=== PATIENT | female | born 1960 | race Hispanic/Latino ===

== ENCOUNTER 2018-04-06 09:33 | Emergency (ER) | payer SELFPAY ==
--- NOTE | 2018-04-06 10:48 | RAD REPORT ---
EXAM DESCRIPTION: RAD -Hand Left 3 View - 04/06/2018 10:12 am CLINICAL HISTORY: Left hand pain status post injury FINDINGS: No fracture or dislocation is seen.
[2018-04-06] MEDS ORDERED: KETOROLAC 30 MG/ML INJ ONE (11:04)
--- NOTE | 2018-04-06 11:43 | EDPHYS ---
Physician Documentation [facility] Name: Karla Sheikh Age: 57 yrs Sex: Female : 1960 Arrival Date: 04/06/2018 Time: 09:36 Bed 19 Private MD: out of town, doctor ED Physician Max Akins HPI: 04/06 09:57 The patient or guardian reports injury, pain. The complaints affect the left thumbnail jmm and palmar aspect of distal phalanx of left thumb and dorsal aspect of distal phalanx of left thumb. Context: resulted from hand saw. Onset: The symptoms/episode began/occurred acutely, last night. Modifying factors: The symptoms are alleviated by nothing, the symptoms are aggravated by nothing. Associated signs and symptoms: Pertinent positives: Pertinent negatives: fever. This is a 57 year old female with no chronic medical conditions that presents to the ED with left thumb pain after accidently cutting herself using a hand saw. The patient complains of throbbing pain. Patient is UTD on tetanus immunization. Denies other injury. . Historical: - Allergies: 09:51 No Known Allergies; ch - Home Meds: 09:51 None [Active]; ch - PMHx: 09:51 None; ch - PSHx: 09:51 None; ch - Immunization history:: Adult Immunizations up to date. - Social history:: Smoking status: Patient/guardian denies using tobacco. - Ebola Screening: : Patient negative for fever greater than or equal to 101.5 degrees Fahrenheit, and additional compatible Ebola Virus Disease symptoms Patient denies exposure to infectious person Patient denies travel to an Ebola-affected area in the 21 days before illness onset No symptoms or risks identified at this time. ROS: 09:57 Constitutional: Negative for fever. jmm 09:57 MS/extremity: Positive for laceration, pain. 09:57 Skin: Positive for laceration(s). 09:57 Neuro: Negative for weakness. 09:57 All other systems are negative. Exam: 09:57 Head/Face: atraumatic. jmm 09:57 Constitutional: The patient appears in no acute distress, alert, awake. 09:57 Cardiovascular: Rate: normal. 09:57 Respiratory: the patient does not display signs of respiratory distress, Respirations: normal. 09:57 Musculoskeletal/extremity: ROM: intact in all extremities, a 0.5 cm laceration noted noted to the radial side of the left distal thumb. An injury to the nail plate is also noted. No active bleeding. Mild erythema is appreciated. FROM, NVI. 09:57 Skin: 0.5 cm laceration noted ot the left thumb with mild erythema. 09:57 Neuro: Orientation: is normal, Mentation: is normal, Memory: is normal, Motor: is normal. 09:57 Psych: Behavior/mood is pleasant, cooperative. Vital Signs: 09:51 BP 151 / 79; Pulse 64; Resp 18; Temp 97.8; Pulse Ox 99% on R/A; Weight 68.04 kg; Height ch 5 ft. 2 in. (157.48 cm); Pain 8/10; 10:47 BP 142 / 68; Pulse 60; Resp 15; Temp 97.9; Pulse Ox 99% on R/A; Pain 7/10; ch 12:01 BP 156 / 85; Pulse 62; Resp 18; Temp 98; Pulse Ox 99% on R/A; Pain 3/10; ch 09:51 Body Mass Index 27.44 (68.04 kg, 157.48 cm) ch MDM: 09:[address] [facility] 10:07 Data reviewed: vital signs, nurses notes. [facility] 11:42 Counseling: I had a detailed discussion with the patient and/or guardian regarding: the [facility] historical points, exam findings, and any diagnostic results supporting the discharge/admit diagnosis, radiology results, the need for outpatient follow up, to return to the emergency department if symptoms worsen or persist or if there are any questions or concerns that arise at home. 04/06 09:56 Order name: Hand Left 3 View XRAY; Complete Time: 10:51 [facility] 04/06 11:19 Order name: Wound Care; Complete Time: 12:04 [facility] Administered Medications: 11:05 Drug: Ketorolac 30 mg Route: IM; Site: right gluteus; 12:04 Follow up: Response: No adverse reaction; Marked relief of symptoms Disposition: 15:01 Co-signature as Attending Physician, Max Akins MD I agree with the assessment and iain plan of care. Disposition: 04/06/18 11:42 Discharged to Home. Impression: Left Thumb Laceration. - Condition is Stable. - Discharge Instructions: Non-Sutured Laceration. - Prescriptions for Augmentin 875- 125 mg Oral Tablet - take 1 tablet by ORAL route every 12 hours for 10 days; 20 tablet. Ultram 50 mg Oral Tablet - take 1 tablet by ORAL route every 6 hours As needed; 12 tablet. - Work release form, Medication Reconciliation Form, Thank You Letter, Antibiotic Education, Prescription Opioid Use form. - Follow up: Private Physician; When: 2 - 3 days; Reason: Continuance of care. Signatures: Dispatcher [employer] EDPeri Arias RN RN ch Anderson, Corey, MD MD cha Mickail, Joel, PA PA jmm Corrections: (The following items were deleted from the chart) 12:04 11:42 04/06/2018 11:42 Discharged to Home. Impression: Left Thumb Laceration. Condition ch is Stable. Forms are Medication Reconciliation Form, Thank You Letter, Antibiotic Education, Prescription Opioid Use. Follow up: Private Physician; When: 2 - 3 days; Reason: Continuance of care. shelia
--- NOTE | 2018-04-06 11:43 | ER ---
Nurse's Notes [facility] Name: Karla Sheikh Age: 57 yrs Sex: Female : 1960 Arrival Date: 04/06/2018 Time: 09:36 Bed 19 Private MD: out of town, doctor Diagnosis: Left Thumb Laceration Presentation: 04/06 09:50 Presenting complaint: Patient states: cut L thumb and nail yesterday at 1000 with a saw. c/o sharp increase in pain today after working. last tetnus shot was 1 yr [employer]. Transition of care: patient was not received from another setting of care. Onset of symptoms was April 05, 2018 at 22:00. Risk Assessment: Do you want to hurt yourself or someone else? Patient reports no desire to harm self or others. Initial Sepsis Screen: Does the patient meet any 2 criteria? No. Patient's initial sepsis screen is negative. Does the patient have a suspected source of infection? No. Patient's initial sepsis screen is negative. Care prior to arrival: None. 09:50 Method Of Arrival: Ambulatory 09:50 Acuity: IRMA 4 Triage Assessment: 09:51 General: Appears in no apparent distress. comfortable, Behavior is calm, cooperative, ch appropriate for age. Pain: Complains of pain in dorsal aspect of distal phalanx of left thumb, palmar aspect of distal phalanx of left thumb and left thumbnail Pain currently is 9 out of 10 on a pain scale. Pain began suddenly. Neuro: No deficits noted. Respiratory: Airway is patent Respiratory effort is even, unlabored, Breath sounds are clear bilaterally. Musculoskeletal: Circulation, motion, and sensation intact. Capillary refill < 3 seconds, in bilateral fingers. toes. Range of motion: intact in all extremities. Injury Description: Laceration sustained to palmar aspect of distal phalanx of left thumb and left thumbnail is clean, 0.5 to 2.5 cm long, not bleeding, was sustained 6-12 hours ago. no active bleeding noted at this time. Historical: - Allergies: 09:51 No Known Allergies; ch - Home Meds: 09:51 None [Active]; ch - PMHx: 09:51 None; ch - PSHx: 09:51 None; ch - Immunization history:: Adult Immunizations up to date. - Social history:: Smoking status: Patient/guardian denies using tobacco. - Ebola Screening: : Patient negative for fever greater than or equal to 101.5 degrees Fahrenheit, and additional compatible Ebola Virus Disease symptoms Patient denies exposure to infectious person Patient denies travel to an Ebola-affected area in the 21 days before illness onset No symptoms or risks identified at this time. Screenin:53 Abuse screen: Denies threats or abuse. Denies injuries from another. Nutritional ch screening: No deficits noted. Tuberculosis screening: No symptoms or risk factors identified. Fall Risk None identified. Assessment: 09:53 Reassessment: Patient appears in no apparent distress at this time. Patient and/or ch family updated on plan of care and expected duration. Pain level reassessed. Patient is alert, oriented x 3, equal unlabored respirations, skin warm/dry/pink. Patient states feeling better. Patient states symptoms have improved. 10:47 Reassessment: Patient appears in no apparent distress at this time. Patient and/or ch family updated on plan of care and expected duration. Pain level reassessed. Patient is alert, oriented x 3, equal unlabored respirations, skin warm/dry/pink. 12:01 Reassessment: Patient appears in no apparent distress at this time. Patient and/or ch family updated on plan of care and expected duration. Pain level reassessed. Patient is alert, oriented x 3, equal unlabored respirations, skin warm/dry/pink. Patient states feeling better. Patient states symptoms have improved. Vital Signs: 09:51 BP 151 / 79; Pulse 64; Resp 18; Temp 97.8; Pulse Ox 99% on R/A; Weight 68.04 kg; Height 5 ft. 2 in. (157.48 cm); Pain 8/10; 10:47 BP 142 / 68; Pulse 60; Resp 15; Temp 97.9; Pulse Ox 99% on R/A; Pain 7/10; ch 12:01 BP 156 / 85; Pulse 62; Resp 18; Temp 98; Pulse Ox 99% on R/A; Pain 3/10; ch 09:51 Body Mass Index 27.44 (68.04 kg, 157.48 cm) ED Course: 09:36 Patient arrived in ED. mr 09:36 out of town, doctor is Private Physician. mr 09:46 Cristiano Meza PA is PHCP. [facility] 09:46 Max Akins MD is Attending Physician. [facility] 09:50 Peri Vo, KWAME is Primary Nurse. 09:51 Triage completed. 09:51 Arm band placed on left wrist. Patient placed in an exam room, on a stretcher. ch 09:53 No apparent distress. Resting quietly. ch 09:53 Patient has correct armband on for positive identification. Placed in gown. Bed in low ch position. Call light in reach. Side rails up X 1. 09:53 Patient did not have IV access during this emergency room visit. 10:07 X-ray completed. Portable x-ray completed in exam room. Patient tolerated procedure ml well. 10:08 Hand Left 3 View XRAY In Process Unspecified. EDMS 12:01 No apparent distress. Resting quietly. 12:01 Warm blanket given. 12:01 No provider procedures requiring assistance completed. 12:01 Wound care: to laceration located on left thumbnail was cleaned with Hibiclens, dressed with Neosporin, 4X4s, Kerlix, Patient tolerated well. Administered Medications: 11:05 Drug: Ketorolac 30 mg Route: IM; Site: right gluteus; 12:04 Follow up: Response: No adverse reaction; Marked relief of symptoms Outcome: 11:42 Discharge ordered by . [facility] 12:01 Discharged to home ambulatory, with family. 12:01 Condition: improved 12:01 Discharge instructions given to patient, Instructed on discharge instructions, follow up and referral plans. no drinking with medication, no driving heavy equipment, medication usage, Demonstrated understanding of instructions, follow-up care, medications, Prescriptions given X 2. 12:04 Patient left the ED. Signatures: Dispatcher [employer] EDMS Peri Vo, KWAME RN Cristiano Kincaid PA PA jmm Rivera, Maria mr Lopez, Melissa ml
== END 2018-04-06 12:04 | disposition home or self-care (01) ==
LOC: ER 09:33
DX: S61.012A Laceration without foreign body of left thumb without damage to nail, initial encounter (principal); W27.0XXA Contact with workbench tool, initial encounter; Y93.89 Activity, other specified; Y92.9 Unspecified place or not applicable; Y99.8 Other external cause status
CPT/HCPCS: 96372; 99284

== ENCOUNTER 2018-07-06 03:15 | Emergency (ER) | payer SELFPAY ==
[2018-07-06] MEDS ORDERED: HYDROCODONE/APAP 7.5/325 MG TAB ONE (04:01)
--- NOTE | 2018-07-06 06:48 | EDPHYS ---
Physician Documentation [facility] Name: Karla Sheikh Age: 58 yrs Sex: Female : 1960 Arrival Date: 07/06/2018 Time: 03:19 Bed 18 Private MD: ED Physician Julio C Tinoco HPI: 07/06 04:00 This 58 yrs old Female presents to ER via Ambulatory with complaints of pkl Shoulder Pain. 04:00 Details of fall: The patient fell from an upright position, Walking up the stairs. pkl Onset: The symptoms/episode began/occurred today, 10 hour(s) ago. Associated injuries: The patient sustained right shoulder, painful injury, right forearm, painful injury. Historical: - Allergies: 03:32 No Known Allergies; fc - Home Meds: 03:32 None [Active]; fc - PMHx: 03:32 None; fc - PSHx: 03:32 Cholecystectomy; fc - Immunization history:: Last tetanus immunization: up to date Flu vaccine is up to date. - Social history:: Smoking status: Patient/guardian denies using tobacco. - Ebola Screening: : Patient negative for fever greater than or equal to 101.5 degrees Fahrenheit, and additional compatible Ebola Virus Disease symptoms Patient denies exposure to infectious person Patient denies travel to an Ebola-affected area in the 21 days before illness onset. ROS: 04:00 Eyes: Negative for injury, pain, redness, and discharge, ENT: Negative for injury, pkl pain, and discharge, Neck: Negative for injury, pain, and swelling, Cardiovascular: Negative for chest pain, palpitations, and edema, Respiratory: Negative for shortness of breath, cough, wheezing, and pleuritic chest pain, Abdomen/GI: Negative for abdominal pain, nausea, vomiting, diarrhea, and constipation, Back: Negative for injury and pain, : Negative for injury, bleeding, discharge, and swelling, Skin: Negative for injury, rash, and discoloration. 04:00 MS/extremity: Positive for pain, tenderness, of the right shoulder and right forearm. 04:00 Neuro: Negative for altered mental status, loss of consciousness. Exam: 04:03 Head/Face: Normocephalic, atraumatic. Eyes: Pupils equal round and reactive to light, pkl extra-ocular motions intact. Lids and lashes normal. Conjunctiva and sclera are non-icteric and not injected. Cornea within normal limits. Periorbital areas with no swelling, redness, or edema. ENT: Nares patent. No nasal discharge, no septal abnormalities noted. Tympanic membranes are normal and external auditory canals are clear. Oropharynx with no redness, swelling, or masses, exudates, or evidence of obstruction, uvula midline. Mucous membranes moist. Neck: Trachea midline, no thyromegaly or masses palpated, and no cervical lymphadenopathy. Supple, full range of motion without nuchal rigidity, or vertebral point tenderness. No Meningismus. Chest/axilla: Normal chest wall appearance and motion. Nontender with no deformity. No lesions are appreciated. Cardiovascular: Regular rate and rhythm with a normal S1 and S2. No gallops, murmurs, or rubs. Normal PMI, no JVD. No pulse deficits. Respiratory: Lungs have equal breath sounds bilaterally, clear to auscultation and percussion. No rales, rhonchi or wheezes noted. No increased work of breathing, no retractions or nasal flaring. Abdomen/GI: Soft, non-tender, with normal bowel sounds. No distension or tympany. No guarding or rebound. No evidence of tenderness throughout. Back: No spinal tenderness. No costovertebral tenderness. Full range of motion. Skin: Warm, dry with normal turgor. Normal color with no rashes, no lesions, and no evidence of cellulitis. Neuro: Awake and alert, GCS 15, oriented to person, place, time, and situation. Cranial nerves II-XII grossly intact. Motor strength 5/5 in all extremities. Sensory grossly intact. Cerebellar exam normal. Normal gait. 04:03 Musculoskeletal/extremity: Extremities: grossly normal except: noted in the right shoulder: noted in the right forearm: pain and tenderness. Vital Signs: 03:28 BP 169 / 77; Pulse 64; Resp 18; Temp 97.0(O); Pulse Ox 99% on R/A; Weight 70.76 kg (R); fc Height 5 ft. 2 in. (157.48 cm) (R); Pain 8/10; 05:44 BP 119 / 66; Pulse 62; Resp 16; Pulse Ox 96% on R/A; aa1 06:29 BP 107 / 74; Pulse 60; Resp 16; Pulse Ox 98% on R/A; Pain 5/10; aa1 03:28 Body Mass Index 28.53 (70.76 kg, 157.48 cm) fc MDM: 03:28 Patient medically screened. pkl 06:46 Data reviewed: vital signs, radiologic studies, CT scan, plain films. pkl 07/06 03:46 Order name: Humerus Right XRAY pkl 07/06 03:46 Order name: Forearm Right XRAY pkl 07/06 04:39 Order name: Shoulder Right Wo Cont EDMS 07/06 04:40 Order name: Wrist Right Wo Cont EDMS 07/06 06:46 Order name: Sling; Complete Time: 07:03 pkl Administered Medications: 03:57 Drug: [place] (7.5 mg-325 mg) 1 tabs Route: PO; aa1 05:46 Follow up: Response: No adverse reaction; Pain is decreased aa1 Disposition: 07/06/18 06:47 Discharged to Home. Impression: Rotator cuff injury right shoulder. Sprain right wrist S/P Fall. - Condition is Stable. - Prescriptions for Ultram 50 mg Oral Tablet - take 1 tablet by ORAL route every 8 hours As needed; 30 tablet. - Medication Reconciliation Form, Thank You Letter, Antibiotic Education, Prescription Opioid Use, Work release form form. - Follow up: Jameel Mcneal MD; When: 2 - 3 days; Reason: Re-evaluation by your physician. - Problem is new. - Symptoms have improved. Signatures: Dispatcher [employer] EDMS Rosmery Marr RN RN aa1 Julio C Tinoco MD MD pk Siri Oneal RN RN Corrections: (The following items were deleted from the chart) 04:06 04:03 Musculoskeletal/extremity: Extremities: grossly normal except: noted in the right pkl shoulder: noted in the right forearm: pkl 07:05 06:47 07/06/2018 06:47 Discharged to Home. Impression: Rotator cuff injury right aa1 shoulder. Sprain right wrist S/P Fall. Condition is Stable. Forms are Medication Reconciliation Form, Thank You Letter, Antibiotic Education, Prescription Opioid Use. Follow up: Dr. Jameel Mcneal; When: 2 - 3 days; Reason: Re-evaluation by your physician. Problem is new. Symptoms have improved. pkl
--- NOTE | 2018-07-06 06:48 | ER ---
Nurse's Notes [facility] Name: Karla Sheikh Age: 58 yrs Sex: Female : 1960 Arrival Date: 07/06/2018 Time: 03:19 Bed 18 Private MD: Diagnosis: Rotator cuff injury right shoulder. Sprain right wrist S/P Fall Presentation: 07/06 03:28 Presenting complaint: Patient states: that she was walking up to stairs and missed a step. Hit right arm and shoulder on the steps. Unable to move at the wrist or shoulder per pt. denies hitting head. Transition of care: patient was not received from another setting of care. Onset of symptoms was July 05, 2018 at 18:00. Risk Assessment: Do you want to hurt yourself or someone else? Patient reports no desire to harm self or others. Initial Sepsis Screen: Does the patient meet any 2 criteria? No. Patient's initial sepsis screen is negative. Does the patient have a suspected source of infection? No. Patient's initial sepsis screen is negative. Care prior to arrival: Medication(s) given: Motrin, at 1830. 03:28 Method Of Arrival: Ambulatory 03:28 Acuity: IRMA 4 fc Historical: - Allergies: 03:32 No Known Allergies; fc - Home Meds: 03:32 None [Active]; fc - PMHx: 03:32 None; fc - PSHx: 03:32 Cholecystectomy; fc - Immunization history:: Last tetanus immunization: up to date Flu vaccine is up to date. - Social history:: Smoking status: Patient/guardian denies using tobacco. - Ebola Screening: : Patient negative for fever greater than or equal to 101.5 degrees Fahrenheit, and additional compatible Ebola Virus Disease symptoms Patient denies exposure to infectious person Patient denies travel to an Ebola-affected area in the 21 days before illness onset. Screenin:31 Abuse screen: Denies threats or abuse. Nutritional screening: No deficits noted. fc Tuberculosis screening: No symptoms or risk factors identified. 03:50 Fall Risk None identified. aa1 Assessment: 03:50 General: Appears in no apparent distress. uncomfortable, Behavior is calm, cooperative, aa1 appropriate for age. Pain: Complains of pain in right arm. Neuro: Level of Consciousness is awake, alert, obeys commands, Oriented to person, place, time, situation. Respiratory: Airway is patent Respiratory effort is even, unlabored, Respiratory pattern is regular, symmetrical. GI: No signs and/or symptoms were reported involving the gastrointestinal system. : No signs and/or symptoms were reported regarding the genitourinary system. EENT: No signs and/or symptoms were reported regarding the EENT system. Derm: Skin is intact, is healthy with good turgor, Skin is pink, warm \T\ dry. Musculoskeletal: Circulation, motion, and sensation intact. Capillary refill < 3 seconds, Range of motion: limited in right elbow and right wrist. 05:45 Reassessment: Patient appears in no apparent distress at this time. Patient and/or aa1 family updated on plan of care and expected duration. Pain level reassessed. Patient is alert, oriented x 3, equal unlabored respirations, skin warm/dry/pink. Awaiting x-ray results. 06:29 Reassessment: Patient appears in no apparent distress at this time. Patient and/or aa1 family updated on plan of care and expected duration. Pain level reassessed. Patient is alert, oriented x 3, equal unlabored respirations, skin warm/dry/pink. Awaiting CT results. 07:04 Reassessment: Patient appears in no apparent distress at this time. Patient is alert, aa1 oriented x 3, equal unlabored respirations, skin warm/dry/pink. Discussed d/c \T\ f/u instructions with pt \T\ daughter; denies questions or concerns at this time. Vital Signs: 03:28 BP 169 / 77; Pulse 64; Resp 18; Temp 97.0(O); Pulse Ox 99% on R/A; Weight 70.76 kg (R); fc Height 5 ft. 2 in. (157.48 cm) (R); Pain 8/10; 05:44 BP 119 / 66; Pulse 62; Resp 16; Pulse Ox 96% on R/A; aa1 06:29 BP 107 / 74; Pulse 60; Resp 16; Pulse Ox 98% on R/A; Pain 5/10; aa1 03:28 Body Mass Index 28.53 (70.76 kg, 157.48 cm) ED Course: 03:19 Patient arrived in ED. ag3 03:27 Julio C Tinoco MD is Attending Physician. pkl 03:28 Arm band placed on Patient placed in an exam room, on a stretcher. 03:31 Triage completed. 03:31 Patient has correct armband on for positive identification. Bed in low position. Call light in reach. 03:54 Rosmery Marr, RN is Primary Nurse. aa1 04:20 X-ray completed. Portable x-ray completed in exam room. Patient tolerated procedure kw well. 04:21 Humerus Right XRAY In Process Unspecified. EDMS 04:21 Forearm Right XRAY In Process Unspecified. EDMS 05:34 Shoulder Right Wo Cont In Process Unspecified. EDMS 05:38 Wrist Right Wo Cont In Process Unspecified. EDMS 06:46 Jameel Mcneal MD is Referral Physician. pkl 07:03 No provider procedures requiring assistance completed. Patient did not have IV access aa1 during this emergency room visit. Sling applied to right arm. Administered Medications: 03:57 Drug: [place] (7.5 mg-325 mg) 1 tabs Route: PO; aa1 05:46 Follow up: Response: No adverse reaction; Pain is decreased aa1 Outcome: 06:47 Discharge ordered by . pkl 07:04 Discharged to home ambulatory, with family. aa1 07:04 Condition: good 07:04 Discharge instructions given to patient, family, Instructed on discharge instructions, follow up and referral plans. medication usage, Demonstrated understanding of instructions, follow-up care, medications, Prescriptions given X 1. 07:05 Patient left the ED. aa1 Signatures: Dispatcher [employer] Rosmery Taylor, KWAME RN aa1 Julio C Tinoco MD MD pkSiri Butterfield RN RN fc Whitley, Kimberlee kw Gomez, Alice ag3
--- NOTE | 2018-07-06 09:04 | RAD REPORT ---
EXAM DESCRIPTION: CT - Shoulder Right Wo Cont - 07/06/2018 5:34 am CLINICAL HISTORY: Right shoulder pain status post fall COMPARISON: 07/06/2018 x-ray TECHNIQUE: Computed axial tomography of the right shoulder was obtained with coronal and sagittal re construction A preliminary report was generated by [email or web address] and reviewed prior to this dictation All CT scans are performed using dose optimization technique as appropriate and may include automated exposure control or mA/KV adjustment according to patient size. FINDINGS: No fracture or dislocation is seen. A significant joint effusion is not noted. The muscles are normal size and density. IMPRESSION: No fracture is seen
--- NOTE | 2018-07-06 09:07 | RAD REPORT ---
EXAM DESCRIPTION: CT - Wrist Right Wo Cont - 07/06/2018 5:38 am CLINICAL HISTORY: Right wrist pain status post fall COMPARISON: 07/06/2018 x-ray TECHNIQUE: Computed axial tomography of the right wrist was obtained with coronal and sagittal recon struction. A preliminary report was generated by [employer] and reviewed prior to this dictat ion All CT scans are performed using dose optimization technique as appropriate and may include automated exposure control or mA/KV adjustment according to patient size. FINDINGS: No fracture or dislocation is seen. A significant joint effusion is not noted. Negative ulnar variance is seen. IMPRESSION: No fracture is visualized. If the patient continues to have symptoms to suggest an occul t fracture, follow-up plain film series in 7 days would be
--- NOTE | 2018-07-06 09:07 | RAD REPORT ---
EXAM DESCRIPTION: RAD - Humerus Right - 07/06/2018 4:25 am CLINICAL HISTORY: Right arm pain status post fall FINDINGS: No fracture is seen
--- NOTE | 2018-07-06 09:08 | RAD REPORT ---
EXAM DESCRIPTION: RAD - Forearm Right - 07/06/2018 4:25 am CLINICAL HISTORY: Right arm pain status post fall FINDINGS: No fracture is seen.
== END 2018-07-06 07:05 | disposition home or self-care (01) ==
LOC: ER 03:15
DX: S46.001A Unspecified injury of muscle(s) and tendon(s) of the rotator cuff of right shoulder, initial encounter (principal); S63.501A Unspecified sprain of right wrist, initial encounter; W10.9XXA Fall (on) (from) unspecified stairs and steps, initial encounter; Y93.89 Activity, other specified; Y92.9 Unspecified place or not applicable
CPT/HCPCS: 73200; 99284

== ENCOUNTER 2019-10-23 23:23 | Observation (INO) | payer SELFPAY ==
[2019-10-24] MEDS ORDERED: ONDANSETRON 4 MG/2 ML VIAL ONE (00:31)
[2019-10-24] MEDS ORDERED: MORPHINE 4 MG/ML SYR ONE (00:31)
[2019-10-24] MEDS ORDERED: NA CHLORIDE 0.9% 1,000 ML ONE (00:31)
[2019-10-24 00:39] LABS: Absolute Lymphocytes (CBC) 2.8 K/uL (0.7-4.9); Basophils % 0.8 % (0-1.3); Hematocrit 37.5 % (36.0-45.0); Lymphocytes % 40.9 % (15.3-44.8); MPV 8.9 fL (7.6-11.3); RBC Red Blood Cell Count 4.19 M/uL (3.86-4.86)
[2019-10-24 00:40] LABS: Protime INR 0.99
[2019-10-24 00:51] LABS: ALT/SGPT 64 U/L (12-78); AST/SGOT 53 U/L (15-37); Albumin 3.8 g/dL (3.4-5.0); Alkaline Phosphatase 84 U/L (45-117); BUN Blood Urea Nitrogen 22 mg/dL (7-18); Bicarbonate 25 mmol/L (21-32); Bilirubin Direct 0.1 mg/dL (0-0.2); Bilirubin Total 0.4 mg/dL (0.2-1.0); Glucose Level 104 mg/dL (74-106); Lipase 236 U/L (73-393); Magnesium 2.1 mg/dL (1.8-2.4); NT PRO-BNP 19 pg/mL (<125); Potassium 3.7 mmol/L (3.5-5.1); Sodium Level 139 mmol/L (136-145); Troponin (Emerg Dept Use Only) < 0.02 ng/mL (0.0-0.045)
--- NOTE | 2019-10-24 01:12 | ER ---
Nurse's Notes [facility] Name: Karla Sheikh Age: 59 yrs Sex: Female : 1960 Arrival Date: 10/23/2019 Time: 23:25 Bed 19 Private MD: Diagnosis: Chest pain on breathing;Essential (primary) hypertension Presentation: 10/23 23:40 Presenting complaint: Patient states: she started having left sided back pain and left bb arm pain on October 14 saw PCP 10/18 and was given diclofenac and tizanidine but the pain is not going away and seems to be worsening. Transition of care: patient was not received from another setting of care. Onset of symptoms was October 14, 2019. Risk Assessment: Do you want to hurt yourself or someone else? Patient reports no desire to harm self or others. Initial Sepsis Screen: Does the patient meet any 2 criteria? No. Patient's initial sepsis screen is negative. Does the patient have a suspected source of infection? No. Patient's initial sepsis screen is negative. Care prior to arrival: None. 23:40 Method Of Arrival: Wheelchair bb 23:40 Acuity: IRMA 3 bb Historical: - Allergies: 23:45 No Known Allergies; bb - Home Meds: 23:45 diclofenac sodium 75 mg oral TbEC 1 tab 2 times per day [Active]; tizanidine 4 mg oral bb cap 1 cap twice a day [Active]; - PMHx: 23:45 None; bb - PSHx: 23:45 Cholecystectomy; bb - Immunization history:: Adult Immunizations up to date. - Social history:: Smoking status: Patient denies any tobacco usage or history of. - Ebola Screening: : No symptoms or risks identified at this time. - Family history:: not pertinent. Screenin/20 00:00 Abuse screen: Denies threats or abuse. Nutritional screening: No deficits noted. jb4 Tuberculosis screening: No symptoms or risk factors identified. Fall Risk None identified. Assessment: 00:00 General: Appears in no apparent distress. uncomfortable, Behavior is calm, cooperative, jb4 appropriate for age. Pain: Complains of pain in left scapular area and right scapular area Pain radiates to anterior aspect of left upper chest and left arm Pain currently is 9 out of 10 on a pain scale. Quality of pain is described as burning. Neuro: Level of Consciousness is awake, alert, obeys commands, Oriented to person, place, time, situation. Cardiovascular: Patient's skin is warm and dry. Respiratory: Airway is patent Respiratory effort is even, unlabored, Respiratory pattern is regular, symmetrical. GI: No signs and/or symptoms were reported involving the gastrointestinal system. : No signs and/or symptoms were reported regarding the genitourinary system. EENT: No signs and/or symptoms were reported regarding the EENT system. Derm: Skin is intact, Skin is pink, warm \T\ dry. Musculoskeletal: Circulation, motion, and sensation intact. Range of motion: intact in all extremities. 00:55 Reassessment: Patient appears in no apparent distress at this time. Patient and/or jb4 family updated on plan of care and expected duration. Pain level reassessed. Patient is alert, oriented x 3, equal unlabored respirations, skin warm/dry/pink. Patient states feeling better. 02:23 Reassessment: Patient appears in no apparent distress at this time. Patient and/or jb4 family updated on plan of care and expected duration. Pain level reassessed. Patient is alert, oriented x 3, equal unlabored respirations, skin warm/dry/pink. Vital Signs: 10/23 23:45 BP 174 / 82; Pulse 71; Resp 16 S; Temp 98.5(O); Pulse Ox 100% on R/A; Weight 76.66 kg bb (R); Height 5 ft. 2 in. (157.48 cm) (R); Pain 9/10; 10/24 01:15 BP 132 / 78; Pulse 65; Resp 16; Pulse Ox 99% on R/A; jb4 10/23 23:45 Body Mass Index 30.91 (76.66 kg, 157.48 cm) bb ED Course: 10/23 23:25 Patient arrived in ED. cl3 23:42 Triage completed. bb 23:43 Max Akins MD is Attending Physician. iain 23:45 Arm band placed on. Family accompanied patient. bb 10/24 00:00 Patient has correct armband on for positive identification. Placed in gown. Bed in low jb4 position. Call light in reach. Side rails up X 1. Pulse ox on. NIBP on. 00:23 XRAY Chest (1 view) In Process Unspecified. EDMS 00:25 Kong Uribe, RN is Primary Nurse. jb4 01:08 Lalit Mc MD is Hospitalizing Provider. [facility] 02:00 No provider procedures requiring assistance completed. Patient admitted, IV remains in place. 07:01 Primary Nurse role handed off by Kong Uribe, RN bp 07:01 Adal Bonilla, KWAME is Primary Nurse. bp Administered Medications: 00:43 Drug: NS 0.9% 1000 ml Route: IV; Rate: 1 bolus; Site: right antecubital; jb4 01:28 Follow up: Response: No adverse reaction; IV Status: Completed infusion; IV Intake: jb4 1000ml 00:44 Drug: Zofran 4 mg Route: IVP; Site: right antecubital; jb4 01:28 Follow up: Response: No adverse reaction jb4 00:46 Drug: morphine 2 mg {Note: Rass score 0.} Route: IVP; Site: right antecubital; jb4 01:15 Follow up: Response: No adverse reaction; Pain is decreased; RASS: Alert and Calm (0) jb4 00:46 Drug: morphine 2 mg {Note: Rass score 0.} Route: IVP; Site: right antecubital; jb4 01:26 Drug: Lopressor (metoprolol TARTRATE) 50 mg Route: PO; jb4 03:41 Follow up: Response: No adverse reaction 01:27 Drug: Aspirin Chewable Tablet 162 mg Route: PO; jb4 03:41 Follow up: Response: No adverse reaction 03:53 Drug: Lovenox 1 mg/kg Route: Sub-Q; Site: right lower abdomen; 03:53 Follow up: Response: No adverse reaction 04:15 Drug: Rocephin 1 grams Route: IV; Rate: per protocol; Site: right antecubital; 04:23 Follow up: Response: No adverse reaction; IV Status: Completed infusion Intake: 01:28 IV: 1000ml; Total: 1000ml. jb4 Outcome: 01:10 Decision to Hospitalize by Provider. iain 02:00 Admitted to ER Hold. Please see [facility] for further documentation. 02:00 Condition: stable 02:00 Instructed on the need for admit. 11:18 Patient left the ED. bp Signatures: Dispatcher [employer] EDMax Rogers MD MD cha Ballard, Brenda, RN RN bb Kong Uribe RN RN jb4 [facility] Brian RN RN bp Gregg Garcia cl3
--- NOTE | 2019-10-24 01:12 | EDPHYS ---
Physician Documentation [facility] Name: Karla Sheikh Age: 59 yrs Sex: Female : 1960 Arrival Date: 10/23/2019 Time: 23:25 Bed 19 Private MD: ED Physician Max Akins HPI: 10/24 00:00 This 59 yrs old Female presents to ER via Wheelchair with complaints of Back iain Pain. 00:00 The patient presents with pain that is acute, with no known mechanism of injury. iain Historical: - Allergies: 10/23 23:45 No Known Allergies; bb - Home Meds: 23:45 diclofenac sodium 75 mg oral TbEC 1 tab 2 times per day [Active]; tizanidine 4 mg oral bb cap 1 cap twice a day [Active]; - PMHx: 23:45 None; bb - PSHx: 23:45 Cholecystectomy; bb - Immunization history:: Adult Immunizations up to date. - Social history:: Smoking status: Patient denies any tobacco usage or history of. - Ebola Screening: : No symptoms or risks identified at this time. - Family history:: not pertinent. ROS: 10/24 00:02 Constitutional: Negative for fever, chills, and weight loss, Eyes: Negative for injury, iain pain, redness, and discharge, ENT: Negative for injury, pain, and discharge, Neck: Negative for injury, pain, and swelling, Cardiovascular: Negative for chest pain, palpitations, and edema, Abdomen/GI: Negative for abdominal pain, nausea, vomiting, diarrhea, and constipation, : Negative for injury, bleeding, discharge, and swelling, MS/Extremity: Negative for injury and deformity, Skin: Negative for injury, rash, and discoloration, Neuro: Negative for headache, weakness, numbness, tingling, and seizure, Psych: Negative for depression, anxiety, suicide ideation, homicidal ideation, and hallucinations, Allergy/Immunology: Negative for hives, rash, and allergies, Endocrine: Negative for neck swelling, polydipsia, polyuria, polyphagia, and marked weight changes, Hematologic/Lymphatic: Negative for swollen nodes, abnormal bleeding, and unusual bruising. Respiratory: Positive for shortness of breath. Back: Positive for pain at rest, of the left scapular area, left subscapular area, left flank and left mid back. Exam: 00:02 Constitutional: This is a well developed, well nourished patient who is awake, alert, iain and in no acute distress. Head/Face: Normocephalic, atraumatic. Eyes: Pupils equal round and reactive to light, extra-ocular motions intact. Lids and lashes normal. Conjunctiva and sclera are non-icteric and not injected. Cornea within normal limits. Periorbital areas with no swelling, redness, or edema. ENT: Nares patent. No nasal discharge, no septal abnormalities noted. Tympanic membranes are normal and external auditory canals are clear. Oropharynx with no redness, swelling, or masses, exudates, or evidence of obstruction, uvula midline. Mucous membranes moist. Neck: Trachea midline, no thyromegaly or masses palpated, and no cervical lymphadenopathy. Supple, full range of motion without nuchal rigidity, or vertebral point tenderness. No Meningismus. Chest/axilla: Normal chest wall appearance and motion. Nontender with no deformity. No lesions are appreciated. Cardiovascular: Regular rate and rhythm with a normal S1 and S2. No gallops, murmurs, or rubs. Normal PMI, no JVD. No pulse deficits. Respiratory: Lungs have equal breath sounds bilaterally, clear to auscultation and percussion. No rales, rhonchi or wheezes noted. No increased work of breathing, no retractions or nasal flaring. Abdomen/GI: Soft, non-tender, with normal bowel sounds. No distension or tympany. No guarding or rebound. No evidence of tenderness throughout. Female : Normal external genitalia. Skin: Warm, dry with normal turgor. Normal color with no rashes, no lesions, and no evidence of cellulitis. MS/ Extremity: Pulses equal, no cyanosis. Neurovascular intact. Full, normal range of motion. Neuro: Awake and alert, GCS 15, oriented to person, place, time, and situation. Cranial nerves II-XII grossly intact. Motor strength 5/5 in all extremities. Sensory grossly intact. Cerebellar exam normal. Normal gait. Psych: Awake, alert, with orientation to person, place and time. Behavior, mood, and affect are within normal limits. 00:02 Back: pain, that is moderate, ROM is normal spinal alignment noted, CVA tenderness, is absent, muscle spasm, is appreciated in the left scapular area, left subscapular area and left mid back. Vital Signs: 10/23 23:45 BP 174 / 82; Pulse 71; Resp 16 S; Temp 98.5(O); Pulse Ox 100% on R/A; Weight 76.66 kg bb (R); Height 5 ft. 2 in. (157.48 cm) (R); Pain 9/10; 10/24 01:15 BP 132 / 78; Pulse 65; Resp 16; Pulse Ox 99% on R/A; jb4 10/23 23:45 Body Mass Index 30.91 (76.66 kg, 157.48 cm) bb MDM: 10/23 23:47 Patient medically screened. [facility] 10/24 00:03 Data reviewed: vital signs, nurses notes, lab test result(s), EKG, radiologic studies, [facility] CT scan, plain films. 10/24 00:00 Order name: Basic Metabolic Panel [facility] 10/24 00:00 Order name: CBC with Diff; Complete Time: 01:[address] [facility] 10/24 00:00 Order name: LFT's; Complete Time: 01:[address] [facility] 10/24 00:00 Order name: Magnesium; Complete Time: 01:[address] [facility] 10/24 00:00 Order name: NT PRO-BNP; Complete Time: 01:[address] [facility] 10/24 00:00 Order name: PT-INR; Complete Time: 01:[address] [facility] 10/24 00:00 Order name: Troponin (emerg Dept Use Only); Complete Time: 01:[address] [facility] 10/24 00:00 Order name: Lipase; Complete Time: 01:[address] [facility] 10/24 00:00 Order name: Urine Culture [facility] 10/24 00:02 Order name: Basic Metabolic Panel; Complete Time: 01:03 [facility] 10/24 01:18 Order name: Lipid Profile [facility] 10/24 01:18 Order name: Lipid Profile [facility] 10/24 01:18 Order name: Troponin I [facility] 10/24 01:18 Order name: Troponin I [facility] 10/24 00:00 Order name: XRAY Chest (1 view) [facility] 10/24 00:00 Order name: CT Aorta for Dissection [facility] 10/24 00:01 Order name: CT C Spine [facility] 10/24 01:17 Order name: Echo with Doppler [facility] 10/24 01:18 Order name: Troponin I [facility] 10/24 03:53 Order name: Urine Dipstick--Ancillary (enter results) 2 10/24 05:50 Order name: Urine Dipstick-Ancillary [facility] 10/24 10:56 Order name: CT [facility] 10/24 10:56 Order name: CT [facility] 10/24 00:00 Order name: EKG; Complete Time: 00:[address] [facility] 10/24 00:00 Order name: Cardiac monitoring; Complete Time: 00: [facility] 10/24 00:00 Order name: EKG - Nurse/Tech; Complete Time: 00:[address] [facility] 10/24 00:00 Order name: IV Saline Lock; Complete Time: 00: [facility] 10/24 00:00 Order name: Labs collected and sent; Complete Time: : [facility] 10/24 00:00 Order name: O2 Per Protocol; Complete Time: 00: [facility] 10/24 00:00 Order name: O2 Sat Monitoring; Complete Time: 00: [facility] 10/24 00:00 Order name: Urine Dipstick-Ancillary (obtain specimen); Complete Time: 03:[address] [facility] 10/24 01:17 Order name: Heart Healthy [facility] 10/24 01:18 Order name: EKG Electrocardiogram [facility] 10/24 01:18 Order name: EKG Electrocardiogram [facility] Administered Medications: 00:43 Drug: NS 0.9% 1000 ml Route: IV; Rate: 1 bolus; Site: right antecubital; :28 Follow up: Response: No adverse reaction; IV Status: Completed infusion; IV Intake: jb4 1000ml 00:44 Drug: Zofran 4 mg Route: IVP; Site: right antecubital; 4 :28 Follow up: Response: No adverse reaction 4 00:46 Drug: morphine 2 mg {Note: Rass score 0.} Route: IVP; Site: right antecubital; jb4 01:15 Follow up: Response: No adverse reaction; Pain is decreased; RASS: Alert and Calm (0) 4 00:46 Drug: morphine 2 mg {Note: Rass score 0.} Route: IVP; Site: right antecubital; 4 01:26 Drug: Lopressor (metoprolol TARTRATE) 50 mg Route: PO; jb4 03:41 Follow up: Response: No adverse reaction 01:27 Drug: Aspirin Chewable Tablet 162 mg Route: PO; jb4 03:41 Follow up: Response: No adverse reaction 03:53 Drug: Lovenox 1 mg/kg Route: Sub-Q; Site: right lower abdomen; 03:53 Follow up: Response: No adverse reaction 04:15 Drug: Rocephin 1 grams Route: IV; Rate: per protocol; Site: right antecubital; 04:23 Follow up: Response: No adverse reaction; IV Status: Completed infusion Disposition: 10/24/19 01:10 Hospitalization ordered by Lalit Mc for Observation. Preliminary diagnosis are Chest pain on breathing, Essential (primary) hypertension. - Bed requested for Telemetry/MedSurg (observation). - Status is Observation. bp - Condition is Fair. - Problem is new. - Symptoms have improved. UTI on Admission? No Signatures: Dispatcher [employer] EDMS Violet Da Silva RN RN mw Anderson, Corey, MD MD cha Ballard, Brenda, RN RN bb Bryson, James, RN RN [employer] [facility] [employer] Adal Bonilla RN RN bp Corrections: (The following items were deleted from the chart) 01:36 01:10 Hospitalization Ordered by Lalit Mc MD for Observation. Preliminary mw diagnosis is Chest pain on breathing; Essential (primary) hypertension. Bed requested for Telemetry/MedSurg (observation). Status is Observation. Condition is Fair. Problem is new. Symptoms have improved. UTI on Admission? No. iain 06:46 01:36 10/24/2019 01:10 Hospitalization Ordered by Lalit Mc MD for Observation. Preliminary diagnosis is Chest pain on breathing; Essential (primary) hypertension. Bed requested for [facility] ER HOLD. Status is Observation. Condition is Fair. Problem is new. Symptoms have improved. UTI on Admission? No. carlos 11:18 06:46 10/24/2019 01:10 Hospitalization Ordered by Lalit Mc MD for Observation. bp Preliminary diagnosis is Chest pain on breathing; Essential (primary) hypertension. Bed requested for Telemetry/MedSurg (observation). Status is Observation. Condition is Fair. Problem is new. Symptoms have improved. UTI on Admission? No. carlos
[2019-10-24] MEDS ORDERED: ACETAMINOPHEN 500 MG TAB PO PRN (01:14)
[2019-10-24] MEDS ORDERED: ALPRAZOLAM 0.25 MG TABLET PO PRN (01:14)
[2019-10-24] MEDS ORDERED: ASPIRIN 81 MG CHEWABLE TABLET ONE (01:25)
[2019-10-24 02:18] VITALS: BMI 31.1
[2019-10-24] MEDS ORDERED: ENOXAPARIN 80 MG/0.8 ML SQ ONE (03:54)
[2019-10-24] MEDS ORDERED: CEFTRIAXONE/SWI 1gm 1 GM/10 ML SYR ONE (04:06)
[2019-10-24 05:50] LABS: Urine Blood TRACE (NEG); Urine Glucose NEGATIVE (NEG); Urine Protein NEGATIVE (NEG); Urine Specific Gravity <1.005 (1.005-1.030)
[2019-10-24] MEDS ORDERED: METOPROLOL TAR 50 MG TAB PO SCH (06:00)
[2019-10-24] MEDS ORDERED: dexAMETHasone 10 MG/ML VIAL IV ONE (06:07)
[2019-10-24] MEDS ORDERED: MORPHINE 2 MG/ML SYR IV PRN (06:08)
--- NOTE | 2019-10-24 06:13 | P.HP ---
Certification for Inpatient Patient admitted to: Observation With expected LOS: <2 Midnights Patient will require the following post-hospital care: None Practitioner: I am a practitioner with admitting privileges, knowledge of patient current condition, hospital course, and medical plan of care. Services: Services provided to patient in accordance with Admission requirements found in Title 42 Section 412.3 of the Code of Federal Regulations Patient History Date of Service: 10/24/19 Reason for admission: Chest pain rule out acute coronary syndrome History of Present Illness: Patient is a 59-year-old female came to the hospital with pain in her back region which extended down to her left side of her arm and to the chest. She came into the emergency room because she was not feeling better. She has been treated with muscle relaxers and anti-inflammatories with very little relief. Her symptoms continued to get worse and they got to the point where she decided to come to the ER. Patient was given pain medication in the emergency room and she is currently feeling somewhat better. She will be admitted to the hospital for further evaluation. Allergies No Known Allergies Allergy (Verified 10/24/19 02:46) Home Medications: Diclofenac Na [Voltaren D.R] 75 mg PO BID 10/24/19 Tizanidine [Zanaflex] 4 mg PO BID 10/24/19 - Past Medical/Surgical History Diabetic: No -: Back pain -: Cholecystectomy - Family History Father Family History: Reviewed- Non-Contributory - Social History Smoking Status: Never smoker Alcohol use: No CD- Drugs: No Caffeine use: Yes Place of Residence: Home Review of Systems 10-point ROS is otherwise unremarkable Physical Examination - Vital Signs Temperature: 98.2 F Blood Pressure: 113/61 Pulse: 57 Respirations: 18 Pulse Ox (%): 97 - Physical Exam General: Alert, In no apparent distress, Oriented x3 HEENT: Atraumatic, PERRLA, Mucous membr. moist/pink, EOMI, Sclerae nonicteric Neck: Supple, 2+ carotid pulse no bruit, No LAD, Without JVD or thyroid abnormality Respiratory: Clear to auscultation bilaterally, Normal air movement Cardiovascular: Regular rate/rhythm, Normal S1 S2, No murmurs Gastrointestinal: Normal bowel sounds, Soft and benign, Non-distended, No tenderness Musculoskeletal: No clubbing, No swelling, Tenderness (Between the scapula and above suprascapular region) Integumentary: No rashes Neurological: Normal gait, Normal speech, Normal strength at 5/5 x4 extr, Normal tone, Sensation intact, Cranial nerves 3-12 intact, Normal affect Lymphatics: No axilla or inguinal lymphadenopathy - Studies Laboratory Data (last 24 hrs) 10/24/19 00:20: PT 11.7, INR 0.99 10/24/19 00:20: WBC 6.9, Hgb 12.5, Hct 37.5, Plt Count 272 10/24/19 00:20: Sodium 139, Potassium 3.7, BUN 22 H, Creatinine 0.75, Glucose 104, Magnesium 2.1, Total Bilirubin 0.4, AST 53 H, ALT 64, Alkaline Phosphatase 84, Lipase 236 Assessment & Plan - Problems (Diagnosis) (1) Chest pain, rule out acute myocardial infarction Current Visit: Yes Status: Acute (2) Musculoskeletal pain Current Visit: Yes Status: Acute (3) Back pain Current Visit: Yes Status: Acute - Plan 1. Serial troponins and EKG 2. Anti-inflammatory and a dose of IV steroids for back pain 3. Echocardiogram and stress test if cardiology is agreeable 4. Anti-platelet therapy, anti coagulation, beta-drew, statin, and O2 as needed 5. IV morphine for pain 6. Nitro p.r.n. Discharge Plan: Home Plan to discharge in: 48 Hours - Advance Directives Does patient have a Living Will: No Does patient have a Durable POA for Healthcare: No - Code Status/Comfort Care Code Status Assessed: Yes Code Status: Full Code Critical Care: No Time Spent Managing PTS Care (In Minutes): 45
[2019-10-24] MEDS ORDERED: dexAMETHasone 10 MG/ML VIAL ONE (06:23)
[2019-10-24 06:31] LABS: HDL Cholesterol 62 mg/dL (40-60); LDL Cholesterol, Calculated 137 (<130); Troponin I < 0.02 ng/mL (0.0-0.045)
--- NOTE | 2019-10-24 08:17 | RAD REPORT ---
EXAM DESCRIPTION: RAD - Chest Single View - 10/24/2019 12:16 am CLINICAL HISTORY: DYSPNEA Chest pain. COMPARISON: No comparisons FINDINGS: Portable technique limits examination quality. The lungs are grossly clear. The heart is normal in size. No displaced fractures. IMPRESSION: No acute intrathoracic process suspected.
[2019-10-24] MEDS ORDERED: ASPIRIN EC 81 MG TAB PO SCH (09:00)
[2019-10-24] MEDS ORDERED: ENOXAPARIN 40 MG/0.4 ML SQ SCH (09:00)
--- NOTE | 2019-10-24 09:22 | P.DS ---
Discharge Date: 10/24/19 Disposition: ROUTINE DISCHARGE Discharge Condition: GOOD Reason for Admission: Chest pain rule out acute coronary syndrome - Problems (1) Chest pain, rule out acute myocardial infarction Current Visit: Yes Status: Acute (2) Musculoskeletal pain Current Visit: Yes Status: Acute (3) Back pain Current Visit: Yes Status: Acute Brief History of Present Illness: Patient is a 59-year-old female came to the hospital with pain in her back region which extended down to her left side of her arm and to the chest. She came into the emergency room because she was not feeling better. She has been treated with muscle relaxers and anti-inflammatories with very little relief. Her symptoms continued to get worse and they got to the point where she decided to come to the ER. Patient was given pain medication in the emergency room and she is currently feeling somewhat better. She will be admitted to the hospital for further evaluation. Hospital Course: Patient's pain is mostly musculoskeletal. At this time patient is stable for discharge home. Vital Signs/Physical Exam: Temp Pulse Resp BP Pulse Ox 98 F 60 18 117/67 98 10/24/19 08:00 10/24/19 08:00 10/24/19 08:00 10/24/19 08:00 10/24/19 08:00 General: Alert, In no apparent distress, Oriented x3 Laboratory Data at Discharge: WBC 6.9 K/uL (4.3-10.9) 10/24/19 00:20 Hgb 12.5 g/dL (12.0-15.0) 10/24/19 00:20 Hct 37.5 % (36.0-45.0) 10/24/19 00:20 Plt Count 272 K/uL (152-406) 10/24/19 00:20 PT 11.7 SECONDS (9.5-12.5) 10/24/19 00:20 INR 0.99 10/24/19 00:20 Sodium 139 mmol/L (136-145) 10/24/19 00:20 Potassium 3.7 mmol/L (3.5-5.1) 10/24/19 00:20 BUN 22 mg/dL (7-18) H 10/24/19 00:20 Creatinine 0.75 mg/dL (0.55-1.3) 10/24/19 00:20 Glucose 104 mg/dL (74-106) 10/24/19 00:20 Magnesium 2.1 mg/dL (1.8-2.4) 10/24/19 00:20 Total Bilirubin 0.4 mg/dL (0.2-1.0) 10/24/19 00:20 AST 53 U/L (15-37) H 10/24/19 00:20 ALT 64 U/L (12-78) 10/24/19 00:20 Alkaline Phosphatase 84 U/L (45-117) 10/24/19 00:20 Troponin I < 0.02 ng/mL (0.0-0.045) 10/24/19 05:59 Triglycerides 122 mg/dL (<150) 10/24/19 05:59 Cholesterol 223 mg/dL (<200) H 10/24/19 05:59 HDL Cholesterol 62 mg/dL (40-60) H 10/24/19 05:59 Cholesterol/HDL Ratio 3.60 10/24/19 05:59 Lipase 236 U/L (73-393) 10/24/19 00:20 Home Medications: Codeine/APAP [Tylenol W/Codeine #3 tab] 1 tab PO Q6HP PRN #20 tab 10/24/19 Diclofenac Na [Voltaren D.r*] 75 mg PO BID 10/24/19 Tizanidine [Zanaflex*] 4 mg PO BID 10/24/19 dexAMETHasone [Decadron] 2 mg PO BID #4 tab 10/24/19 New Medications: Codeine/APAP [Tylenol W/Codeine #3 tab] 1 tab PO Q6HP PRN #20 tab PRN Reason: Pain dexAMETHasone [Decadron] 2 mg PO BID #4 tab Patient Discharge Instructions: OK TO DC IV AND DC HOME. FOLLOW-UP WITH PRIMARY CARE PROVIDER IN 1-2 WEEKS. FOLLOW-UP WITH CARDIOLOGY IN 1-2 WEEKS. RETURN TO THE ER IF symptoms worsen. CALL or TEXT DR. GREGORY AT [phone] IF ANY QUESTIONS REGARDING HOSPITAL STAY. PLEASE CALL THE FLOOR AT [phone] IF ANY MEDICATION OR NURSING QUESTIONS. Diet: AHA Activity: Fall precautions Time spent managing pt's care (in minutes): 20
[2019-10-24] MEDS ORDERED: ASPIRIN EC 81 MG TAB PO ONE (10:32)
--- NOTE | 2019-10-24 10:54 | RAD REPORT ---
EXAM DESCRIPTION: CT Angiography Chest, Abdomen and Pelvis With Intravenous Contrast CLINICAL HISTORY: The patient is 59 years old and is Female; SOB;Pain;Dyspnea TECHNIQUE: Axial computed tomographic angiography images of the chest, abdomen and pelvis with intra venous contrast. Sagittal and coronal reformatted images were created and reviewed. This CT exam was performed using one or more of the following dose reduction techniques: automated exposure cont rol, adjustment of the mA and/or kV according to patient size, and/or use of iterative reconstruction technique. MIP reconstructed images were created and reviewed. COMPARISON: No relevant prior studies available. FINDINGS: VASCULATURE: AORTA: Minimal atherosclerosis of the aorta is present. No aortic aneurysm. No dissection. PULMONARY ARTERIES: There are no obvious filling defects identified within the pulmonary arterie s to suggest pulmonary embolism. GREAT VESSELS OF AORTIC ARCH: No acute findings. No dissection. No arterial occlusion or sig nificant stenosis. CELIAC TRUNK AND MESENTERIC ARTERIES: No acute findings. No occlusion or significant stenosis. RENAL ARTERIES: No acute findings. No occlusion or significant stenosis. ILIAC ARTERIES: No acute findings. No occlusion or significant stenosis. CHEST: LUNGS: Unremarkable. No mass. No consolidation. PLEURAL SPACE: Unremarkable. No significant effusion. No pneumothorax. HEART: Unremarkable. No cardiomegaly. No significant pericardial effusion. ABDOMEN: LIVER: The liver is enlarged and fatty. GALLBLADDER AND BILE DUCTS: Surgical clips are present in the right upper quadrant, consistent w ith previous cholecystectomy. No ductal dilation. PANCREAS: Unremarkable. No ductal dilation. No mass. SPLEEN: Unremarkable. No splenomegaly. ADRENALS: A 1 cm right adrenal gland lesion measuring Hounsfield units of 38 is present. The lef t adrenal gland is normal. KIDNEYS AND URETERS: Unremarkable. No hydronephrosis. No solid mass. STOMACH AND BOWEL: The stomach is moderately fluid-filled. The small bowel is normal in caliber. Stool is noted throughout the colon. There is no mucosal thickening or evidence of bowel obstruction . PELVIS: APPENDIX: The appendix is normal in caliber without surrounding inflammation. BLADDER: Unremarkable. No mass. REPRODUCTIVE: Unremarkable as visualized. CHEST, ABDOMEN and PELVIS: INTRAPERITONEAL SPACE: Unremarkable. No significant fluid collection. No free air. BONES/JOINTS: No acute fracture. No dislocation. SOFT TISSUES: Unremarkable. LYMPH NODES: Unremarkable. No enlarged lymph nodes. IMPRESSION: 1. There is no evidence of aortic aneurysm or dissection. 2. No evidence of pulmonary embolism. 3. No evidence of bowel obstruction. Normal appendix. No renal or ureteral calculi. 4. Right adrenal gland nodule likely benign. One-year follow-up adrenal washout CT is recommended. If stable for greater than or equal to 1 year, no further follow-up imaging recommended. Electronically signed by: Negrita Head MD 10/24/2019 2:31 AM STAFF COUNSELOR Due to temporary technical issues with the PACS/Fluency reporting system, reports are being signed by the in house radiologist as a courtesy to ensure prompt reporting. The interpreting radiologist is f ully responsible for the content of the report.
--- NOTE | 2019-10-24 10:55 | RAD REPORT ---
EXAM DESCRIPTION: CT Cervical Spine Without Intravenous Contrast CLINICAL HISTORY: The patient is 59 years old and is Female; PAIN TECHNIQUE: Axial computed tomography images of the cervical spine without intravenous contrast. Sa gittal and coronal reformatted images were created and reviewed. This CT exam was performed using o ne or more of the following dose reduction techniques: automated exposure control, adjustment of th e mA and/or kV according to patient size, and/or use of iterative reconstruction technique. COMPARISON: No relevant prior studies available. FINDINGS: VERTEBRAE: The vertebral body heights and alignment are maintained. No acute fracture. DISCS/SPINAL CANAL/NEURAL FORAMINA: Minimal intervertebral disc space narrowing and osteophyte f ormation from C5 through C7 is present. Mild neural foraminal narrowing secondary to disc osteophyte complexes at these levels is also present. Minimal facet arthropathy is noted specifically in the upp er cervical spine on the left. SOFT TISSUES: The soft tissues are normal. LUNG APICES: The lung apices are clear. IMPRESSION: Mild spondylosis of the cervical spine without acute findings. Electronically signed by: Negrita Head MD 10/24/2019 2:44 AM PARALEGAL SECRETARY Due to temporary technical issues with the PACS/Fluency reporting system, reports are being signed by the in house radiologist as a courtesy to ensure prompt reporting. The interpreting radiologist is sigrid loaiza responsible for the content of the report.
[2019-10-24 11:41] VITALS: O2SAT 99
--- NOTE | 2019-10-24 14:53 | EKG ---
Test Date: 2019-10-24 Test Time: 00:37:27 Drum Sander Offbearer: RELL MEASUREMENT RESULTS: Intervals: Rate: 96 AR: 168 QRSD: 82 QT: 380 QTc: 480 [place]: P: 37 AR: 168 QRS: 68 T: 26 INTERPRETIVE STATEMENTS: Normal sinus rhythm Nonspecific ST abnormality Prolonged QT Abnormal ECG No previous ECG available for comparison Electronically Signed On 10-24-19 14:51:51 RO[address] COMMISSIONER by Ian Ruth
--- NOTE | 2019-10-24 15:23 | ECHO ---
HEIGHT: 5 ft 2 in WEIGHT: 170 lb 0 oz DATE OF STUDY: 10/24/[address]: Lalit Mc MD 2-DIMENSIONAL: YES M.MODE: YES DOPPLER: YES COLOR FLOW: YES TDS: NO PORTABLE: NO DEFINITY: NO BUBBLE STUDY: NO DIAGNOSIS: CHEST PAIN CARDIAC HISTORY: CATHERIZATION: NO SURGERY: NO PROSTHETIC VALVE: NO PACEMAKER: NO MEASUREMENTS (cm) DIASTOLIC (NORMALS) SYSTOLIC (NORMALS) IVSd 1.1 (0.6-1.2) LA Diam 3.3 (1.9-4.0) LVEF 70% LVIDd 3.8 (3.5-5.7) LVIDs 2.4 (2.0-3.5) %FS 39% LVPWd 0.9 (0.6-1.2) Ao Diam 2.4 (2.0-3.7) 2 DIMENSIONAL ASSESSMENT: RIGHT ATRIUM: NORMAL LEFT ATRIUM: NORMAL RIGHT VENTRICLE: NORMAL LEFT VENTRICLE: NORMAL TRICUSPID VALVE: NORMAL MITRAL VALVE: NORMAL PULMONIC VALVE: NORMAL AORTIC VALVE: NORMAL PERICARDIAL EFFUSION: NONE AORTIC ROOT: NORMAL LEFT VENTRICULAR WALL MOTION: NORMAL. DOPPLER/COLOR FLOW: NORMAL. COMMENTS: NORMAL 2D ECHO WITH DOPPLER. TECHNOLOGIST: SRINATH BATES
[2019-10-24 16:05] VITALS: BP 122/59; TEMP 98
[2019-10-25] MEDS ORDERED: ENOXAPARIN 40 MG/0.4 ML SQ SCH (09:00)
== END 2019-10-24 17:44 | disposition home or self-care (01) ==
LOC: ER 23:23 → ERHOLD 10-24 01:14 → 4TH 10-24 11:04
PROVIDERS: ADMIT Hospitalist; ATTEND Hospitalist
DX: R07.9 Chest pain, unspecified (principal); M79.18 Myalgia, other site; M54.9 Dorsalgia, unspecified
CPT/HCPCS: 36415; 71045; 71275; 72125; 74175; 80048; 80061; 80076; 81003; 83690; 83735; 83880; 84484; 85025; 85610; 93005; 93306; 96361; 96372; 96374; 96375; 99285; G0378; J0696; J1100; J1650; J2270; J2405; J7030; Q9967

== ENCOUNTER 2020-11-20 19:52 | Emergency (ER) | payer SELFPAY ==
[2020-11-20] MEDS ORDERED: DIAZEPAM 5 MG TABLET ONE (22:09)
[2020-11-20 22:50] LABS: Arterial Blood Carboxyhemoglob 7.4 % (0-1.5); Blood Gas Oxyhemoglobin 91.1 % (94-97); Blood O2 Saturation 99.6 % (92-98.5)
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
[2020-11-21] MEDS ORDERED: IBUPROFEN 400 MG TAB ONE (01:04)
[2020-11-21 01:19] VITALS: TEMP 98.1
[2020-11-21 01:24] VITALS: BP 125/85; O2SAT 100
== END 2020-11-21 00:54 | disposition home or self-care (01) ==
LOC: ER 19:52
DX: R06.02 Shortness of breath (principal); T58.8X1A Toxic effect of carbon monoxide from other source, accidental (unintentional), initial encounter; Y92.015 Private garage of single-family (private) house as the place of occurrence of the external cause
CPT/HCPCS: 82805; 93005; 99284

== ENCOUNTER 2022-03-03 21:57 | Emergency (ER) | payer SELFPAY ==
--- OUTSIDE RECORDS SUMMARY | 2022-03-03 22:00 | XMS REPORT | Continuity of Care Document ---
:1960 Author Organization [facility] t Address [address] [place] [address] Care Team Providers Name Role Phone FLORENCIO FOSTER Primary Care Physician Unavailable Bibiana North Attending Clinician BIBIANA BARRERA Attending Clinician Unavailable BIBIANA BARRERA Admitting Clinician Unavailable Problems Condition Condition Condition Status Onset Resolution Last Treating Co mments Source Name Details Category Date Date Treatment Clinician Date No known No known Disease Unive rs active active ity of problems problems [facility] Allergies, Adverse Reactions, Alerts Allergy Allergy Status Severity Reaction(s) Onset Inactive Treating Comm ents Source Name Type Date Date Clinician NO KNOWN Drug Active Univers ALLERGIE Class ity of S [facility] Social History Social Habit Start Date Stop Date Quantity Comments Source [facility] Exposure to SARS-CoV-2 Yes [facility] [place] (event) [facility] Smoking Status Start Date Stop Date Source Unknown if ever smoked Universit y [facility] Medications Ordered Filled Start Stop Current Ordering Indication Dosage Frequency Signature Comments Components Source Medication Medication Date Date Medication? Clinician (SIG) Name Name NaCl 0.9% 2019-0 2020- No 500mL at 999 Univ ers (NS) bolus 03-25- mL/hr, 500 it y of infusion 08:45: 08:26 mL, IV [place] 500 mL 00 :00 Infusion, Medical ONCE, 1 Branch dose, 03/25/20 at 0345, STAT acetaminoph 0 2020- No 1000mg 1,000 mg, Univers en 03-25 Oral, ity of (TYLENOL) 08:45: 07:43 ONCE, 1 [place] tablet 00 :00 dose, [facility] 1,000 mg 03/25/20 at Bran h 0345, DELICIA aspirin 324mg 324 mg, Unive rs chewable 03-25 Oral, ity of tablet 324 08:00: 07:08 ONCE, 1 [place] as mg 00 :00 dose, [facility] 03/25/20 at Branch 0300, Routine naproxen 2015-10 Yes 500mg Take 1 Univer s (NAPROSYN) 0-03 tablet by ity of 500 mg 00:00: mouth 2 [place] tablet 00 (two) Medical times [place] daily with meals. acetaminoph 2015-10 Yes 1{tbl} Take 1 Un arvin en-codeine 0-03 tablet by ity of (TYLENOL 00:00: mouth [place] #3) 300-30 00 every 4 Medica l mg tablet (four) Branch hours as needed for Pain unrelieved by non-narcot ic analgesics . acetaminoph Yes 1{tbl} Take 1 Un arvin en-codeine 7-13 tablet by ity of (TYLENOL-CO 00:00: mouth [place] DEINE #3) 00 every 6 Medical 300-30 mg (six) Branch tablet hours as needed for Pain (scale 4-6). Vital Signs Vital Name Observation Time Observation Value Comments Source Heart rate 2020-03-25 07:49:00 108 /min [facility] Respiratory rate 2020-03-25 07:49:00 18 /min [facility] Oxygen saturation in 2020-03-25 07:49:00 100 /min [facility] Arterial blood by [facility] Pulse oximetry Branch Systolic blood 2020-03-25 07:30:00 140 mm[Hg] Univer sity of pressure [facility] Diastolic blood 2020-03-25 07:30:00 83 mm[Hg] Unive rsity of pressure [facility] Body temperature 2020-03-25 06:20:00 36.83 Yajaira [facility] Body height 2020-03-25 06:20:00 157.5 cm [facility] Body weight 2020-03-25 06:20:00 74.844 kg [facility] BMI 2020-03-25 06:20:00 30.18 kg/m2 [facility] Heart rate 2020-03-25 07:49:00 108 /min [facility] Respiratory rate 2020-03-25 07:49:00 18 /min [facility] Oxygen saturation in 2020-03-25 07:49:00 100 /min [facility] Arterial blood by [facility] Pulse oximetry Branch Systolic blood 2020-03-25 07:30:00 140 mm[Hg] [facility] Diastolic blood 2020-03-25 07:30:00 83 mm[facility]Hg[facility] 2020-03-25 06:20:00 36.83 Yajaira [facility] Body height 2020-03-25 06:20:00 157.5 cm [facility] Body weight 2020-03-25 06:20:00 74.844 kg [facility] BMI 2020-03-25 06:20:00 30.18 kg/m2 [facility] Procedures Procedure Date / Time Performing Clinician Source Performed XR CHEST 1 VW COVID 2020-03-25 07:23:57 Clinton Barrera [facility] MAGNESIUM 2020-03-25 07:07:00 Clinton Barrera [facility] TROPONIN I 2020-03-25 07:07:00 Lit [facility] COMP. METABOLIC PANEL 2020-03-25 07:07:00 Clinton Barrera [facility] ([id number]) [facility] CBC WITH DIFFERENTIAL 2020-03-25 07:07:00 Clinton Barrera Bibiana [facility] EKG-12 LEAD 2020-03-25 06:32:38 Lit, K [facility] COVID-19 (ID NOW RAPID 2020-03-25 06:26:00 Naeem Alvarenga [facility] TESTING) [facility] CONSENT/REFUSAL FOR 2020-03-25 06:03:19 Doctor Unassigned, [facility]REATMENT Name Medical Branch NOTICE OF PRIVACY 2020-03-25 06:02:56 Doctor Unassigned, No Univ [facility] PRACTICES Name Medical Branch Encounters Start End Encounter Admission Attending Care Care Encounter Source Date/Time Date/Time Type Type Clinicians Facility Department ID 2020-03-25 2020-03-25 Emergency Clinton Barrera [facility] [id number] Univers 01:09:28 03:29:00 Bibiana Yanez [id number] i [facility] [place] [id number] [facility] [id number] [facility] 084 Branch 2020-03-25 2020-03-25 Emergency X Clinton BARRERA [facility] ERT [id number] Univers 01:09:28 03:29:00 ity of [facility] 2020-03-25 2020-03-25 Emergency Clinton Barrera [facility] [id number] 01:09:28 03:29:00 Bibiana Yanez [id number] [place] [id number] [place] [id number] Results Test Description Test Time Test Comments Results Result Comments Source TROPONIN I 2020-03-25 08:07:00 Test Item Value Reference Range Interpretation Comme nts TROPONIN I (test code = <0.012 See_Comment [Au tomated message] The 7433199059) system which ge nerated this result tra nsmitted reference range : <=0.034 ng/mL. The refe rence range was not u sed to interpret this result as normal/abnormal . BERRY (test code = BERRY) Equal or Less than 0.034 ng/ml---Normal ?Note: Cardiac troponin begins to rise 3-4 hours after the onset of ischemia. Repeat in 4-6 hours if the sample was drawn within 3-4 hours of the onset of the symptom and found normal. Between 0.035 and 0.120 ng/mL--- Borderline. Questionable myocardial injury or necrosis ? ?Note: Serial measurement may be necessary to confirm or exclude the diagnosis of myocardial injury or necrosis; Clinical correlation (symptoms, EKGs, imaging studies, and others) required; Repeat in 4-6 hours if clinically indicated. ? Equal or Higher than 0.121 ng/mL---Abnormal. Myocardial Injury or Necrosis Likely ? Biotin has been reported to cause a negative bias, interpret results relative to patient's use of biotin. ? Lab Interpretation (test Normal code = 75694-5) [facility]. METABOLIC PANEL (52235)2020-03-25 07:55:00 Test Item Value Reference Range Interpretation Comments NA (test code = 137 mmol/L 135-145 1040702097) K (test code = 4.4 mmol/L 3.5-5 2361002918) CL (test code = 104 mmol/L 98-108 9297565232) CO2 TOTAL (test code = 21 mmol/L 23-31 L 8095233526) AGAP (test code = 2-16 3425567001) BUN (test code = 20 mg/dL 7-23 3780537747) GLUCOSE (test code = 231 mg/dL 70-110 H 8767753264) CREATININE (test code = 0.78 mg/dL 0.5-1.04 0485130640) TOTAL BILI (test code = 0.2 mg/dL 0.1-1.4 5423095916) CALCIUM (test code = 9.5 mg/dL 8.6-10.6 7715278080) T PROTEIN (test code = 8.8 g/dL 6.3-8.2 H 5205443736) ALBUMIN (test code = 4.9 g/dL 3.5-5 9933920004) ALK PHOS (test code = 100 U/L 34-122 4636473136) ALTv (test code = 148 U/L 5-35 H 1742-6) AST(SGOT) (test code = 143 U/L 13-40 H 5553329544) eGFR Calculation mL/min/1.73m2 (Non-) (test code = 5921000064) eGFR Calculation mL/min/1.73m2 () (test code = 0807999172) BERRY (test code = BERRY) Association of Glomerular Filtration Rate (GFR) and Staging of Kidney Disease* + --+ --+ ------+| GFR (mL/min/1.73 m2) ?| With Kidney Damage ?| ?Without Kidney Damage+ --------+ --------+ +| ?>90 ?| ?Stage one ?| ? Normal ?+ ---+ ---+ -------+| ?60-89 ?| ?Stage two ?| ? Decreased GFR ? + --+ --+ ------+| ?30-59 ?| ?Stage three ?| ? Stage three ? + --+ --+ ------+| ?15-29 ?| ?Stage four ? | ? Stage four ?+ ---+ ---+ -------+| ?<15 (or dialysis) ? ?| ?Stage five ? | ? Stage five ?+ ---+ ---+ -------+ *Each stage assumes the associated GFR level has been in effect for at least three months. ?Stages 1 to 5, with or without kidney disease, indicate chronic kidney disease. Notes: Determination of stages one and two (with eGFR >59mL/min/1.73 m2) requires estimation of kidney damage for at least three months as defined by structural or functional abnormalities of the kidney, manifested by either:Pathological abnormalities or Markers of kidney damage (including abnormalities in the composition of the blood or urine or abnormalities in imaging tests). Lab Interpretation Abnormal (test code = 37682-9) [facility] Test Item Value Reference Range Interpretation Comments MAGNESIUM (test code = 9365985898) 2.1 mg/dL 1.7-2.4 Lab Interpretation (test code = Normal 30946-2) [facility] WITH [id number] 07:22:00 Test Item Value Reference Range Interpretation Comments WBC (test code = See_Comment [Automated 6030-2) message] The sy stem which generated this result transmitted reference range : 4.30 - 11.10 10*3/?L. The reference range was not used to interpret this result as normal/abnormal . RBC (test code = See_Comment [Automated 640-0) message] The sy stem which generated this result transmitted reference range : 3.93 - 5.25 10*6/?L. The reference range was not used to interpret this result as normal/abnormal . HGB (test code = 12.4 g/dL 11.6-15 718-7) HCT (test code = 37.3 % 35.7-45.2 4544-3) MCV (test code = 91.9 fL 80.6-95.5 787-2) MCH (test code = 30.5 pg 25.9-32.8 785-6) MCHC (test code = 33.2 g/dL 31.6-35.1 786-4) RDW-SD (test code = 43.9 fL 39-49.9 39322-1) RDW-CV (test code = 13.0 % 12-15.5 788-0) PLT (test code = See_Comment [Automated 777-3) message] The sy stem which generated this result transmitted reference range : 166 - 358 10*3/ ?L. The reference r alexis was not used to interpret this result as normal/abnormal . MPV (test code = 10.1 fL 9.5-12.9 77238-1) NRBC/100 WBC (test See_Comment [Automat ed code = 5884826431) message] The system which generated this result transmitted reference range : 0.0 - 10.0 /100 WBCs. The refer ence range was not u sed to interpret th is result as normal/abnormal . NRBC x10^3 (test code <0.01 See_Comment [Auto mated = 0128125810) message] The s ystem which generated this result transmitted reference range : 10*3/?L. The reference range was not used to interpret this result as normal/abnormal . GRAN MAT (NEUT) % 79.8 % (test code = 770-8) IMM GRAN % (test code 0.80 % = 6775693844) LYMPH % (test code = 16.0 % 736-9) MONO % (test code = 3.2 % 5905-5) EOS % (test code = 0.0 % 713-8) BASO % (test code = 0.2 % 706-2) GRAN MAT x10^3(ANC) 4.73 10*3/uL 1.88-7.09 (test code = 2793533487) IMM GRAN x10^3 (test 0.05 10*3/uL 0-0.06 code = 2887649077) LYMPH x10^3 (test code 0.95 10*3/uL 1.32-3.29 L = 731-0) MONO x10^3 (test code 0.19 10*3/uL 0.33-0.92 L = 742-7) EOS x10^3 (test code = <0.03 0.03-0.39 L 711-2) BASO x10^3 (test code <0.03 0.01-0.07 = 704-7) Lab Interpretation Abnormal (test code = 25376-1) [facility] NOW RAPID TEST[facility])2020-03-25 07:12:00 Test Item Value Reference Range Interpretation Comments SARS-CoV-2 Rapid ID NOW Positive Not Detected A (test code = 73356-3) BERRY (test code = BERRY) ID NOW COVID-19 Assay is an isothermal nucleic acid amplification test intended for the qualitative detection of nucleic acid from SARS-CoV-2 viral RNA in nasopharyngeal (S[employer]OL OCCUPATIONAL THERAPIST) specimens. It is used under Emergency Use Authorization (EUA) by FDA. The limit of detection (LOD) of the assay is 125 Genome Equivalents/mL. A positive result is indicative of the presence of SARS-CoV-2 RNA. ?Clinical correlation with patient history and other diagnostic information is necessary to determine patient infection status. A negative (Not Detected) result does not preclude SARS-CoV-2 infection. In patients with clinical symptoms and other tests that are consistent with SARS-CoV-2 infection, negative results should be treated as presumptive negative and a new specimen should be tested with alternative PCR molecular test. Invalid: Please collect a new specimen for repeat patient testing if clinically indicated. Lab Interpretation Abnormal (test code = 93665-7) [facility]"
[2022-03-03 22:55] LABS: Absolute Lymphocytes (CBC) 1.7 K/uL (0.7-4.9); Hematocrit 35.3 % (36.0-45.0); Lymphocytes % 16.1 % (15.3-44.8); MPV 8.5 fL (7.6-11.3); RBC Red Blood Cell Count 3.89 M/uL (3.86-4.86)
[2022-03-03 23:12] LABS: Potassium 3.3 mmol/L (3.5-5.1); Troponin High Sensitivity 4.1 pg/mL (<58.9)
[2022-03-03] MEDS ORDERED: NA CHLORIDE 0.9% 1,000 ML ONE (23:25)
[2022-03-03] MEDS ORDERED: ACETAMINOPHEN 325 MG TABLET ONE (23:25)
[2022-03-04 00:37] LABS: Urine Blood 2+ (Negative); Urine Glucose Negative (Negative); Urine Protein Negative (Negative); Urine pH 5.5 (5.0-7.0)
[2022-03-04] MEDS ORDERED: PEN G BENZ LA 1.2MU/2ML SYRINGE IM ONE (03:50)
--- NOTE | 2022-03-04 05:51 | EDPHYS ---
Physician Documentation [facility] Name: Karla Sheikh Age: 61 yrs Sex: Female : 1960 Arrival Date: 03/03/2022 Time: 22:00 Bed 17 Private MD: ED Physician Christiano Ovalle HPI: 03/03 22:40 This 61 yrs old Female presents to ER via EMS with complaints of Abdominal mh7 Cramping, Nausea/Vomiting, Bloody Stools. 22:40 The patient or guardian reports chest pain that is located primarily in the substernal mh7 area. 22:40 Onset: today, at 21:30. The pain radiates to the left arm. mh7 22:40 Associated signs and symptoms: Pertinent negatives: abdominal pain, cough, diaphoresis, mh7 dizziness, headache, lower extremity pain, lower extremity swelling, lightheadedness, nausea, near syncope, palpitations, recent travel, shortness of breath, syncope, vomiting. 22:40 The chest pain is described as tightness. Duration: The patient or guardian reports mh7 multiple episodes, that are intermittent, that wax and wane, with no pattern. Modifying factors: The symptoms are alleviated by nothing. the symptoms are aggravated by nothing. Severity of pain: At its worst the pain was moderate today, in the emergency department the pain has improved moderately. Historical: - Allergies: 22:28 No Known Allergies; ag7 - Home Meds: 22:28 None [Active]; ag7 - PMHx: 22:28 None; ag7 - Immunization history:: Adult Immunizations up to date, Client reports receiving the 2nd dose of the Covid vaccine, Flu vaccine is not up to date. It has been more than one year since last vaccine. - Social history:: Smoking status: Patient reports the use of cigarette tobacco products, Patient denies any tobacco usage or history of. ROS: 22:40 Eyes: Negative for injury, pain, redness, and discharge, ENT: Negative for injury, mh7 pain, and discharge, Neck: Negative for injury, pain, and swelling, Respiratory: Negative for shortness of breath, cough, wheezing, and pleuritic chest pain, Abdomen/GI: Negative for abdominal pain, nausea, vomiting, diarrhea, and constipation, Back: Negative for injury and pain, : Negative for injury, bleeding, discharge, and swelling, MS/Extremity: Negative for injury and deformity, Skin: Negative for injury, rash, and discoloration, Neuro: Negative for headache, weakness, numbness, tingling, and seizure, Psych: Negative for depression, anxiety, suicide ideation, homicidal ideation, and hallucinations, Allergy/Immunology: Negative for hives, rash, and allergies, Endocrine: Negative for neck swelling, polydipsia, polyuria, polyphagia, and marked weight changes, Hematologic/Lymphatic: Negative for swollen nodes, abnormal bleeding, and unusual bruising. 22:40 Constitutional: Positive for chills. Exam: 22:40 Head/Face: Normocephalic, atraumatic. Neck: Trachea midline, no thyromegaly or masses mh7 palpated, and no cervical lymphadenopathy. Supple, full range of motion without nuchal rigidity, or vertebral point tenderness. No Meningismus. Chest/axilla: Normal chest wall appearance and motion. Nontender with no deformity. No lesions are appreciated. 22:40 Respiratory: Lungs have equal breath sounds bilaterally, clear to auscultation and percussion. No rales, rhonchi or wheezes noted. No increased work of breathing, no retractions or nasal flaring. Abdomen/GI: Soft, non-tender, with normal bowel sounds. No distension or tympany. No guarding or rebound. No evidence of tenderness throughout. Back: No spinal tenderness. No costovertebral tenderness. Full range of motion. Skin: Warm, dry with normal turgor. Normal color with no rashes, no lesions, and no evidence of cellulitis. MS/ Extremity: Pulses equal, no cyanosis. Neurovascular intact. Full, normal range of motion. Neuro: Awake and alert, GCS 15, oriented to person, place, time, and situation. Cranial nerves II-XII grossly intact. Motor strength 5/5 in all extremities. Sensory grossly intact. Cerebellar exam normal. Normal gait. Psych: Awake, alert, with orientation to person, place and time. Behavior, mood, and affect are within normal limits. 22:40 Constitutional: The patient appears in no acute distress, alert, awake, uncomfortable. 22:40 Cardiovascular: Rate: tachycardic, Rhythm: regular, Pulses: no pulse deficits are appreciated, Heart sounds: normal, normal S1and S2, Edema: is not appreciated, JVD: is not appreciated. Vital Signs: 22:00 BP 141 / 73 LA Supine (/reg); Pulse 114 MON; Resp 24 S; Temp 101.8(O); Pulse Ox 98% on ag7 R/A; Weight 68.04 kg; Height 5 ft. 2 in. (157.48 cm) (R); Pain 7/10; 03/04 01:58 BP 126 / 63; Pulse 84; Resp 18 S; Temp 99.5(O); Pulse Ox 99% on R/A; Pain 0/10; ag7 05:39 BP 125 / 71; Pulse 93; Resp 17 S; Pulse Ox 98% ; Pain 0/10; ag7 03/03 22:00 Body Mass Index 27.44 (68.04 kg, 157.48 cm) 7 MDM: 05:47 Differential diagnosis: acute myocardial infarction, acute pericarditis, anxiety, 7 coronary artery disease chest wall pain, congestive heart failure cholecystitis, Cholelithiasis costochondritis, esophagitis, gastritis, gastroesophageal reflux disease (GERD), peptic ulcer disease, pleurisy, pneumonia, pneumothorax. HEART Score: History: Slightly Suspicious (0), ECG: Normal (0), Age: > 45 and < 65 years (1), Risk Factors: No Risk Factors Known (0), Troponin: < or = 1 x Normal Limit (0), Total Score = 1. Data reviewed: vital signs, nurses notes, lab test result(s), cardiac enzymes, CBC, electrolytes, urinalysis, EKG, radiologic studies, plain films. Data interpreted: Pulse oximetry: on room air is 98 %. Interpretation: normal. Counseling: I had a detailed discussion with the patient and/or guardian regarding: the historical points, exam findings, and any diagnostic results supporting the discharge/admit diagnosis, lab results, radiology results, the need for outpatient follow up. Response to treatment: the patient's symptoms have resolved after treatment, the patient's blood pressure is in an acceptable range, mental status has returned to baseline, the patient no longer shows bradycardia, the patient is not short of breath, the patient is not tachycardic, the patient's pain is gone, the patient's temperature has normalized, the patient is now symptom free, patient is well hydrated. 05:50 Patient medically screened. [facility] 03/03 22:19 Order name: Basic Metabolic Panel; Complete Time: 23:13 [facility] 03/03 22:19 Order name: CBC with Diff; Complete Time: 23:10 [facility] 03/03 22:19 Order name: Troponin HS; Complete Time: 23:13 [facility] 03/03 23:12 Order name: Influenza Screen (a \\T\\ B); Complete Time: 01:08 [facility] 03/03 23:12 Order name: COVID-19 SARS RT PCR (Document "Date of Onset" if Symptomatic); Complete [facility] Time: 02:25 03/03 23:13 Order name: Rapid Strep; Complete Time: 01:08 [facility] 03/03 22:19 Order name: XRAY Chest (1 view) [facility] 03/03 23:14 Order name: Blood Culture Adult (2) [facility] 03/03 23:14 Order name: Lactate; Complete Time: 01:08 [facility] 03/04 00:37 Order name: Urine Dipstick-Ancillary; Complete Time: 01:08 [facility] 03/03 22:19 Order name: EKG; Complete Time: 22:19 [facility] 03/03 22:19 Order name: Cardiac monitoring; Complete Time: 22:19 [facility] 03/03 22:19 Order name: EKG - Nurse/Tech; Complete Time: 22:19 [facility] 03/03 22:19 Order name: IV Saline Lock; Complete Time: 22:19 [facility] 03/03 22:19 Order name: Labs collected and sent; Complete Time: 22:19 [facility] 03/03 22:19 Order name: O2 Per Protocol; Complete Time: 22:20 [facility] 03/03 22:19 Order name: O2 Sat Monitoring; Complete Time: 22:20 [facility] 03/03 23:12 Order name: Urine Dipstick-Ancillary (obtain specimen); Complete Time: 00:51 [facility] Administered Medications: 03/03 23:36 Drug: Tylenol 650 mg Route: PO; [facility] 03/04 00:30 Follow up: Response: No adverse reaction [facility] 03/03 23:47 Drug: NS 0.9% 1000 ml Route: IV; Rate: 1000 ml; Site: left antecubital; [facility] 03/04 01:00 Follow up: IV Status: Completed infusion; IV Intake: 1000ml [facility] 03:49 Drug: Bicillin L-A (penicillin G Benzathine) 1.2 million units Route: IM; Site: right ag7 ventrogluteal; 04:16 Follow up: Response: No adverse reaction [facility] Disposition Summary: 03/04/22 05:50 Discharge Ordered Location: Home [facility] Problem: new [facility] Symptoms: have improved [facility] Condition: Stable [facility] Diagnosis - Streptococcal pharyngitis [facility] - UTI/ Urinary tract infection, site not specified [facility] Followup: [facility] - With: Private Physician - When: 1 - 2 days - Reason: Worsening of condition, Recheck today's complaints, Continuance of care, Re-evaluation by your physician Discharge Instructions: - Discharge Summary Sheet [facility] - Strep Throat, Adult, [id number] [facility] - Urinary Tract Infection, Adult, Bkkp-kh-[id number] [facility] Forms: - Medication Reconciliation Form [facility] - Thank You Letter [facility] - Antibiotic Education [facility] - Prescription Opioid Use [facility] Prescriptions: - Cipro 500 mg Oral Tablet - take 1 tablet by ORAL route every 12 hours for 7 days; 14 tablet; Refills: 0, [facility] Product Selection Permitted Signatures: Dispatcher [employer] Christiano Flores MD MD 7 Aury Bishop PA PA sb3 Lorena Staley RN RN 7 Corrections: (The following items were deleted from the chart) 03/03 22:30 22:28 Home Meds: diclofenac sodium 75 mg Oral TbEC 1 tab 2 times per day; 7 ag7 : 22:28 Home Meds: tizanidine 4 mg Oral cap 1 cap twice a day; 7 ag7
--- NOTE | 2022-03-04 05:51 | ER ---
Nurse's Notes [facility] Name: Karla Sheikh Age: 61 yrs Sex: Female : 1960 Arrival Date: 03/03/2022 Time: 22:00 Bed 17 Private MD: Diagnosis: Streptococcal pharyngitis;UTI/ Urinary tract infection, site not specified Presentation: 03/03 22:00 Chief complaint: EMS states: Patient partying outside, later started having sudden ag7 onset chest pain tightness radiating to the left arm. Coronavirus screen: Client denies travel out of the [place] in the last 14 days. At this time, the client does not indicate any symptoms associated with coronavirus-19. Ebola Screen: Patient negative for fever greater than or equal to 101.5 degrees Fahrenheit, and additional compatible Ebola Virus Disease symptoms Patient denies exposure to infectious person. Patient denies travel to an Ebola-affected area in the 21 days before illness onset. 22:00 Method Of Arrival: EMS ag7 22:00 Initial Sepsis Screen: Does the patient meet any 2 criteria? RR > 20 per min. Temp ag7 <36.0*C (96.8*F)) or > 38.3*C (100.9*F). Yes Does the patient have a suspected source of infection? No. Patient's initial sepsis screen is negative. Risk Assessment: Do you want to hurt yourself or someone else? Patient reports no desire to harm self or others. Onset of symptoms was March 03, 2022. Care prior to arrival: Medication(s) given: ASA, 324 mg Nitroglycerin, 0.4 mg SL x 1, IV initiated. 20 GA, in the left antecubital area, EMS report B/P 180/90, and EKG ST 130. 22:00 Acuity: IRMA 2 ag7 Historical: - Allergies: 22:28 No Known Allergies; ag7 - Home Meds: 22:28 None [Active]; ag7 - PMHx: 22:28 None; ag7 - Immunization history:: Adult Immunizations up to date, Client reports receiving the 2nd dose of the Covid vaccine, Flu vaccine is not up to date. It has been more than one year since last vaccine. - Social history:: Smoking status: Patient reports the use of cigarette tobacco products, Patient denies any tobacco usage or history of. Screenin:35 Abuse screen: Denies threats or abuse. Nutritional screening: No deficits noted. ag7 Tuberculosis screening: No symptoms or risk factors identified. Fall Risk No fall in past 12 months (0 pts). No secondary diagnosis (0 pts). IV access (20 points). Ambulatory Aid- None/Bed Rest/Nurse Assist (0 pts). Gait- Normal/Bed Rest/Wheelchair (0 pts) Mental Status- Oriented to own ability (0 pts). Total Gonzalez Fall Scale indicates No Risk (0-24 pts). Assessment: 22:30 General: Appears in no apparent distress. Behavior is calm, cooperative, drowsy. Pain: ag7 Complains of pain in chest and left arm Pain radiates to left arm Pain currently is 7 out of 10 on a pain scale. Quality of pain is described as tightness. Neuro: Level of Consciousness is awake, alert, obeys commands, Oriented to Appropriate for age. Cardiovascular: Heart tones S1 S2 present Capillary refill < 3 seconds in bilateral fingers Rhythm is sinus tachycardia Chest pain. Respiratory: Airway is patent Trachea midline Respiratory effort is even, unlabored, Respiratory pattern is regular, symmetrical, Breath sounds are clear bilaterally. GI: Bowel sounds present X 4 quads. Abd is soft and non tender X 4 quads. 03/04 01:59 Reassessment: Patient and/or family updated on plan of care and expected duration. Pain ag7 level reassessed. Patient is alert, oriented x 3, equal unlabored respirations, skin warm/dry/pink. Patient denies pain at this time. Patient states feeling better. Patient states symptoms have improved. 04:00 Reassessment: No changes from previously documented assessment. ag7 05:36 Reassessment: Patient and/or family updated on plan of care and expected duration. Pain ag7 level reassessed. Patient is alert, oriented x 3, equal unlabored respirations, skin warm/dry/pink. Patient denies pain at this time. Patient states feeling better. Patient states symptoms have improved. Vital Signs: 03/03 22:00 BP 141 / 73 LA Supine (/reg); Pulse 114 MON; Resp 24 S; Temp 101.8(O); Pulse Ox 98% on ag7 R/A; Weight 68.04 kg; Height 5 ft. 2 in. (157.48 cm) (R); Pain 7/10; 03/04 01:58 BP 126 / 63; Pulse 84; Resp 18 S; Temp 99.5(O); Pulse Ox 99% on R/A; Pain 0/10; ag7 05:39 BP 125 / 71; Pulse 93; Resp 17 S; Pulse Ox 98% ; Pain 0/10; ag7 03/03 22:00 Body Mass Index 27.44 (68.04 kg, 157.48 cm) ag7 ED Course: 03/03 22:00 Patient arrived in ED. ja2 22:18 Lorena Staley, RN is Primary Nurse. ag7 22:28 Triage completed. ag7 22:35 Patient has correct armband on for positive identification. Bed in low position. Call ag7 light in reach. Side rails up X 1. Adult w/ patient. 22:36 Christiano Ovalle MD is Attending Physician. 7 22:40 Inserted saline lock: 20 gauge in left antecubital area, using aseptic technique. Blood ag7 collected. 23:00 XRAY Chest (1 view) In Process Unspecified. EDMS 23:49 Blood Culture Adult (2) Sent. ag7 23:49 Lactate Sent. ag7 23:49 Rapid Strep Sent. ag7 23:49 COVID-19 SARS RT PCR (Document "Date of Onset" if Symptomatic) Sent. ag7 23:49 Influenza Screen (a \\T\\ B) Sent. ag7 03/04 00:51 Blood Culture Adult (2) Sent. ag7 06:19 No provider procedures requiring assistance completed. IV discontinued, intact, ag7 bleeding controlled, No redness/swelling at site. Pressure dressing applied, to the left AC 20 gauge. 06:20 Patient n/a. ag7 Administered Medications: 03/03 23:36 Drug: Tylenol 650 mg Route: PO; 7 03/04 00:30 Follow up: Response: No adverse reaction 7 03/03 23:47 Drug: NS 0.9% 1000 ml Route: IV; Rate: 1000 ml; Site: left antecubital; 7 03/04 01:00 Follow up: IV Status: Completed infusion; IV Intake: 1000ml [facility] 03:49 Drug: Bicillin L-A (penicillin G Benzathine) 1.2 million units Route: IM; Site: right ag7 ventrogluteal; 04:16 Follow up: Response: No adverse reaction ag7 Medication: 03/03 22:35 VIS not applicable for this client. ag7 Intake: 03/04 01:00 IV: 1000ml; Total: 1000ml. ag7 Outcome: 05:50 Discharge ordered by . [facility] 06:20 Discharged to home ambulatory. ag7 06:20 Condition: stable 06:20 Discharge instructions given to patient, Instructed on discharge instructions, follow up and referral plans. medication usage, Demonstrated understanding of instructions, follow-up care, medications, Prescriptions given X 1. 06:21 Patient left the ED. 7 Signatures: Dispatcher [employer] EDMS Christiano Ovalle MD MD 7 Faye Morales Angela, RN RN 7 Corrections: (The following items were deleted from the chart) 03/03 22: 22:28 Home Meds: diclofenac sodium 75 mg Oral TbEC 1 tab 2 times per day; 7 7 : 22:28 Home Meds: tizanidine 4 mg Oral cap 1 cap twice a day; 7 7
[2022-03-04 07:09] VITALS: TEMP 99.5
[2022-03-04 07:11] VITALS: BP 125/71; O2SAT 98
--- NOTE | 2022-03-04 14:11 | RAD REPORT ---
EXAM DESCRIPTION: RAD - Chest Single View - 03/03/2022 10:58 pm CLINICAL HISTORY: CHEST PAIN COMPARISON: None. TECHNIQUE: AP Chest. FINDINGS: Normal cardiac size. Minimal aortic atherosclerosis. Pulmonary vasculature appears normal. Normal cardiomediastinal contours. Lung volumes are low resulting in central vascular prominence. Pl eural spaces are clear. Unremarkable soft tissues and bones. IMPRESSION: 1. No acute chest disease. Electronically signed by: Анна Albert DO 03/03/2022 11:21 PM CDT Due to temporary technical issues with the PACS/Fluency reporting system, reports are being signed by the in house radiologist without review as a courtesy to ensure prompt reporting. The interpreting r adiologist is fully responsible for the content of the report.
--- NOTE | 2022-03-05 07:54 | EKG ---
Test Date: 2022-03-03 Test Time: 22:03:05 Mechanical Maintenance Engineer: RC MEASUREMENT RESULTS: Intervals: Rate: 116 ND: 166 QRSD: 84 QT: 324 QTc: 450 [place]: P: 40 ND: 166 QRS: 52 T: 28 INTERPRETIVE STATEMENTS: Sinus tachycardia Otherwise normal ECG Compared to ECG 11/20/2020 21:55:30 No significant changes Electronically Signed On 03-05-22 07:50:42 CDT by Kwasi Cabrera
== END 2022-03-04 06:21 | disposition home or self-care (01) ==
LOC: ER 21:57
DX: J02.0 Streptococcal pharyngitis (principal); N39.0 Urinary tract infection, site not specified; Z20.822 Contact with and (suspected) exposure to COVID-19; Z72.0 Tobacco use
CPT/HCPCS: 36415; 71045; 80048; 81003; 83605; 84484; 85025; 87040; 87081; 87804; 93005; 96360; 96372; 99284; J0561; J7030; U0003